=== PATIENT | male | born 2000 | race Two or more races ===

== ENCOUNTER 2022-12-01 14:02 | Emergency (ER) | payer OTHER ==
[~2022-12-01] VITALS: Ht 180.3 cm; Wt 72.6 kg
[~2022-12-01 14:02] MED LIST: NO TOMA MEDICAMENTO
== END 2022-12-01 19:04 | disposition home or self-care (01) ==
LOC: ER 14:02
DX: J06.9 Acute upper respiratory infection, unspecified (principal); R53.81 Other malaise; Z20.822 Contact with and (suspected) exposure to COVID-19

== ENCOUNTER 2023-03-09 10:38 | Emergency (ER) | payer OTHER ==
[~2023-03-09] VITALS: Ht 182.9 cm; Wt 68.9 kg
[2023-03-09] MEDS ORDERED: NORFLEX100MG PO (14:20)
[2023-03-09] MEDS ORDERED: DICLOFENAC POTA50 MG PO (14:20)
== END 2023-03-09 14:54 | disposition home or self-care (01) ==
LOC: ER 10:38
PROVIDERS: General Practice
DX: R07.89 Other chest pain (principal); M94.0 Chondrocostal junction syndrome [Tietze]; Z88.2 Allergy status to sulfonamides